=== PATIENT | female | born 1995 | race American Indian/Alaskan Native ===

== ENCOUNTER 2016-06-26 18:40 | Emergency (ER) | payer SELFPAY ==
[2016-06-26 19:05] VITALS: BP 120/82
== END 2016-06-26 19:44 | disposition left against medical advice (07) ==
LOC: DL.ED 18:40
DX: Z53.21 Procedure and treatment not carried out due to patient leaving prior to being seen by health care provider (principal)

== ENCOUNTER 2016-06-26 21:34 | Emergency (ER) | payer SELFPAY ==
[2016-06-26] MEDS ORDERED: Clindamycin HCl 150 MG Cap PO ONE (22:10)
[2016-06-26] MEDS ORDERED: Acetaminophen/HYDROcodone 325-10 MG Tab PO ONE (22:10)
[2016-06-26 22:13] VITALS: BP 103/69
--- NOTE | 2016-06-26 22:17 | EDM.PDOC ---
ED HPI Skin/Rash - General Chief Complaint: Skin Complaint Stated Complaint: BOIL Time Seen by Provider: 06/26/16 22:11 Source: Reports: Patient History Limitations: Reports: No limitations - History of Present Illness INITIAL COMMENTS - FREE TEXT/NARRATIVE: c/o 1 week h/o right buttocks boil, started draining this am, now it hurts a lot - Related Data Allergies Allergy/AdvReac Type Severity Reaction Status Date / Time No Known Allergies Allergy Verified 06/26/16 22:07 Home Meds: Ambulatory Orders Medication Instructions Recorded Confirmed . 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: Psychiatric History: Reports: Addiction (methamphetamine abuse) - Infectious Disease History Infectious Disease History: Reports: None - Past Surgical History Female Surgical History: Reports: section Social & Family History - Family History Family Medical History: Noncontributory Cardiac: Reports: CAD Endocrine/Metabolic: Reports: Diabetes, type II - Tobacco Use Smoking Status *Q: Current Every Day Smoker Years of Tobacco use: 3 Packs/Tins Daily: 0.3 Used Tobacco, but Quit: No Second Hand Smoke Exposure: Yes - Caffeine Use Caffeine Use: Reports: Energy drinks, Soda - Alcohol Use Days Per Week of Alcohol Use: 0 - Recreational Drug Use Recreational Drug Use: No Drug Use in Last 12 Months: Yes Recreational Drug Type: Reports: Methamphetamine Recreational Drug Use Frequency: Binges - Sexual History Sexual History: Reports: Sexually active - Living Situation & Occupation Living situation: Reports: with family Occupation: unemployed ED ROS GENERAL - Review of Systems Review Of Systems: ROS reveals no pertinent complaints other than HPI. ED EXAM, SKIN/RASH Exam: See Below Exam Limited By: No limitations General Appearance: alert, WD/WN, mild distress, other (crying) Ears: hearing grossly normal Throat/Mouth: Normal voice, No airway compromise Head: atraumatic Neck: non-tender, full range of motion Respiratory/Chest: no respiratory distress Cardiovascular: regular rate, rhythm GI/Abdominal: soft, non tender Neurological: alert, oriented, normal cognition, normal gait, no motor/sensory deficits Psychiatric: tearful Skin: Other (abscess) Location, Skin: other (buttocks) Associated features: warmth, tenderness, inflammation Lymphatic: no adenopathy Course - Orders/Labs/Meds Orders: Active Orders 24 hr Category Date Time Status Acetaminophen/HYDROcodone [Norris 325-10 MG] Med 06/26/16 22:10 Once 1 tab PO ONETIME ONE Clindamycin HCl [Cleocin] Med 06/26/16 22:10 Once 150 mg PO ONETIME ONE Departure - Departure Time of Disposition: 22:17 Disposition: Home, Self-Care 01 Condition: good Clinical Impression: Abscess Instructions: Abscess, [id number] Forms: ED Department Discharge Additional Instructions: 1) hot compress to area 2) follow up with clinic or recheck as needed rx given: clindamycin 150mg qid x 40 vicodin 5/325mg bid prn x 12 - My Orders Last 24 Hours: My Active Orders 06/26/16 22:10 Acetaminophen/HYDROcodone [Norris 325-10 MG] 1 tab PO ONETIME ONE Clindamycin HCl [Cleocin] 150 mg PO ONETIME ONE - Assessment/Plan Last 24 Hours: My Active Orders 06/26/16 22:10 Acetaminophen/HYDROcodone [Norris 325-10 MG] 1 tab PO ONETIME ONE Clindamycin HCl [Cleocin] 150 mg PO ONETIME ONE
== END 2016-06-26 22:22 | disposition home or self-care (01) ==
LOC: DL.ED 21:34
DX: L02.31 Cutaneous abscess of buttock (principal); F17.210 Nicotine dependence, cigarettes, uncomplicated; Z87.440 Personal history of urinary (tract) infections
CPT/HCPCS: 99282; A9270; 99283

== ENCOUNTER 2017-05-30 16:06 | Emergency (ER) | payer SELFPAY ==
[2017-05-30 17:07] VITALS: BP 145/65
--- NOTE | 2017-05-30 17:52 | CR ---
Clinical history: 22-year-old female with pain left foot, laterally (stepped on). Interpretation: Mild pes cavus but no sign of left foot fracture (acute or healing) or dislocation. No foreign bodies. (Tiny os peroneum lateraly) Interpretation: Negative exam.
--- NOTE | 2017-05-30 18:09 | EDM.PDOC ---
Scribed by Mimi Avalos 05/30/17 1809 for Michelle Navarro NP <Michelle Navarro - Last Filed: 05/30/17 18:09> ED HPI GENERAL MEDICAL PROBLEM - General Chief Complaint: Lower Extremity Injury/Pain Stated Complaint: [id number] LEFT FOOT PAIN Time Seen by Provider: 05/30/17 17:23 Source of Information: Reports: Patient, RN, RN Notes Reviewed History Limitations: Reports: No Limitations - History of Present Illness INITIAL COMMENTS - FREE TEXT/NARRATIVE: Patient presents to ER with complaint of left foot pain. She states someone stapped on it yesterday. It began hurting last night at 2100. It is worse today. Hard trouble standing on it at work. Her last menstrual period ended 3 days ago. Onset Date: 05/29/17 Duration: Getting Worse Location: Reports: Lower Extremity, Left Quality: Reports: Ache Severity: Mild Improves with: Reports: None Worsens with: Reports: None Associated Symptoms: Reports: No Other Symptoms Left Feet Pain Score (Numeric/FACES): 6 - Related Data Allergies Allergy/AdvReac Type Severity Reaction Status Date / Time No Known Allergies Allergy Verified 06/26/16 22:07 Home Meds: Home Meds . 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: Psychiatric History: Reports: Addiction - Infectious Disease History Infectious Disease History: Reports: None - Past Surgical History Female Surgical History: Reports: Section Social & Family History - Family History Family Medical History: Noncontributory Cardiac: Reports: CAD Endocrine/Metabolic: Reports: Diabetes, type II - Tobacco Use Smoking Status *Q: Current Every Day Smoker Years of Tobacco use: 3 Packs/Tins Daily: 0.3 Used Tobacco, but Quit: No Second Hand Smoke Exposure: Yes - Caffeine Use Caffeine Use: Reports: Energy Drinks, Soda - Alcohol Use Days Per Week of Alcohol Use: 0 - Recreational Drug Use Recreational Drug Use: No Drug Use in Last 12 Months: Yes Recreational Drug Type: Reports: Methamphetamine Recreational Drug Use Frequency: Binges - Sexual History Sexual History: Reports: Sexually Active - Living Situation & Occupation Living situation: Reports: with Family Occupation: Unemployed Review of Systems - Review of Systems Review Of Systems: ROS reveals no pertinent complaints other than HPI. ED EXAM, GENERAL - Physical Exam Exam: See Below Exam Limited By: No Limitations General Appearance: Alert, WD/WN, No Apparent Distress Eye Exam: Bilateral Eye: Normal Inspection Ears: Normal External Exam, Normal Canal, Hearing Grossly Normal, Normal TMs Nose: Normal Inspection, Normal Mucosa, No Blood Throat/Mouth: Normal Inspection, Normal Lips, Normal Teeth, Normal Gums, Normal Oropharynx, Normal Voice, No Airway Compromise Head: Atraumatic, Normocephalic Neck: Normal Inspection, Supple, Non-Tender, Full Range of Motion Respiratory/Chest: No Respiratory Distress, Lungs Clear, Normal Breath Sounds, No Accessory Muscle Use, Chest Non-Tender Cardiovascular: Normal Peripheral Pulses, Regular Rate, Rhythm, No Edema, No Gallop, No JVD, No Murmur, No Rub GI/Abdominal: Normal Bowel Sounds, Soft, Non-Tender, No Organomegaly, No Distention, No Abnormal Bruit, No Mass (Female) Exam: Deferred Rectal (Female) Exam: Deferred Back Exam: Normal Inspection, Full Range of Motion, NT Extremities: Other (left foot with ecchymosis and swelling. ) Neurological: Alert, Oriented, CN II-XII Intact, Normal Cognition, Normal Gait, Normal Reflexes, No Motor/Sensory Deficits Psychiatric: Normal Affect, Normal Mood Skin Exam: Warm, Dry, Intact, Normal Color, No Rash Lymphatic: No Adenopathy Course - Vital Signs Last Recorded V/S: Last Vital Signs Temp 37.0 C 05/30/17 17:05 Pulse 76 05/30/17 17:05 Resp 16 05/30/17 17:05 BP 145/65 H 05/30/17 17:05 Pulse Ox 100 05/30/17 17:05 - Orders/Labs/Meds Orders: Active Orders 24 hr Category Date Time Status DME for Discharge [COMM] Urgent Oth 05/30/17 18:27 Ordered - Radiology Interpretation Free Text/Narrative:: Left foot x-ray: Negative exam. See rad report. Departure - Departure Disposition: Home, Self-Care 01 Clinical Impression: Strain of left foot Qualifiers: Encounter type: initial encounter Qualified Code(s): S96.912A - Strain of unspecified muscle and tendon at ankle and foot level, left foot, initial encounter - Discharge Information Instructions: Foot Sprain Forms: ED Department Discharge Care Plan Goals: The patient was advised of the examination and x-ray results during the visit. The patient was placed in an EULALIA wrap for support. The patient was encouraged to rest, ice, elevate and compress the area of injury. If the patient has any additional symptoms or concerns, the patient should follow-up with her primary care facility or return to the emergency department. - My Orders Last 24 Hours: My Active Orders 05/30/17 18:27 DME for Discharge [COMM] Urgent - Assessment/Plan Last 24 Hours: My Active Orders 05/30/17 18:27 DME for Discharge [COMM] Urgent <Navarro Malloy - Last Filed: 05/30/17 18:29> Departure - Departure Time of Disposition: 18:27 Condition: Fair I have read and agree with the documentation that has been completed regarding this visit. By signing this record, I attest that the documentation was completed in my physical presence and is an accurate record of the encounter.
== END 2017-05-30 18:34 | disposition home or self-care (01) ==
LOC: DL.ED 16:06
DX: S96.912A Strain of unspecified muscle and tendon at ankle and foot level, left foot, initial encounter (principal); F17.210 Nicotine dependence, cigarettes, uncomplicated; W22.8XXA Striking against or struck by other objects, initial encounter
CPT/HCPCS: 73630-LT; 99282; 99283

== ENCOUNTER 2018-03-08 14:36 | Emergency (ER) | payer SELFPAY ==
[2018-03-08] MEDS ORDERED: Sodium Chloride 0.9% 10 ML Syringe FLUSH PRN (14:41)
--- NOTE | 2018-03-08 14:41 | EDM.PDOC ---
ED HPI GENERAL MEDICAL PROBLEM - General Chief Complaint: Abdominal Pain Stated Complaint: SHARP PAINS CAN'T BREATHE Time Seen by Provider: 03/08/18 14:40 Source of Information: Reports: Patient, Old Records, RN, RN Notes Reviewed History Limitations: Reports: No Limitations - History of Present Illness INITIAL COMMENTS - FREE TEXT/NARRATIVE: Pt presents from home by POV with c/o upper abdominal pain and burning that radiates through the midline of the chest into the throat. Pt states that she has been vomiting all day and cannot keep any food or liquids down. She reports Hx of PUD with similar Sx's in the past. Onset was a couple of hours after eating spicy noodles. Denies bloody or coffee ground emesis. Denies fever, chills, diarrhea, or constipation. Onset: Today Duration: Constant Location: Reports: Abdomen Quality: Reports: Burning Severity: Severe Improves with: Reports: None Worsens with: Reports: Eating Associated Symptoms: Reports: No Other Symptoms Epigastric Pain Score (Numeric/FACES): 8 - Related Data Allergies Allergy/AdvReac Type Severity Reaction Status Date / Time No Known Allergies Allergy Verified 06/26/16 22:07 Home Meds: Home Meds . 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: Psychiatric History: Reports: Addiction - Infectious Disease History Infectious Disease History: Reports: None - Past Surgical History Female Surgical History: Reports: Section Social & Family History - Family History Family Medical History: Noncontributory Cardiac: Reports: CAD Endocrine/Metabolic: Reports: Diabetes, type II - Tobacco Use Smoking Status *Q: Current Every Day Smoker Tobacco Use Within Last Twelve Months: Cigarettes - Caffeine Use Caffeine Use: Reports: Energy Drinks, Soda - Sexual History Sexual History: Reports: Sexually Active - Living Situation & Occupation Living situation: Reports: with Family Occupation: Unemployed ED ROS GENERAL - Review of Systems Review Of Systems: ROS reveals no pertinent complaints other than HPI. ED EXAM, GI/ABD - Physical Exam Exam: See Below Exam Limited By: No Limitations General Appearance: Alert, WD/WN, No Apparent Distress, Anxious, Thin Eyes: Bilateral: Normal Appearance, EOMI Nose: Normal Inspection, Normal Mucosa, No Blood Throat/Mouth: Normal Inspection, Normal Lips, Normal Teeth, Normal Gums, Normal Oropharynx, Normal Voice, No Airway Compromise Head: Atraumatic, Normocephalic Neck: Normal Inspection, Supple, Non-Tender, Full Range of Motion Respiratory/Chest: No Respiratory Distress, Lungs Clear, Normal Breath Sounds, No Accessory Muscle Use, Chest Non-Tender Cardiovascular: Normal Peripheral Pulses, Regular Rate, Rhythm, No Edema, No Gallop, No JVD, No Murmur, No Rub GI/Abdominal Exam: Normal Bowel Sounds, Soft, No Organomegaly, No Distention, No Abnormal Bruit, No Mass, Pelvis Stable, Tender (epigastric region). No: Guarding, Rigid, Rebound (Female) Exam: Deferred Rectal (Female) Exam: Deferred Back Exam: Normal Inspection Extremities: Normal Inspection Neurological: Alert, Oriented, Normal Cognition, No Motor/Sensory Deficits Psychiatric: Normal Affect, Normal Mood Skin Exam: Warm, Dry, Intact, Normal Color, No Rash Course - Vital Signs Last Recorded V/S: Last Vital Signs Temp 36.7 C 03/08/18 14:55 Pulse 88 03/08/18 14:55 Resp 16 03/08/18 14:55 BP 123/70 03/08/18 14:55 Pulse Ox 99 03/08/18 14:55 - Orders/Labs/Meds Orders: Active Orders 24 hr Category Date Time Status Peripheral IV Care [RC] . DIRECTED Care 03/08/18 14:41 Active Peripheral IV Insertion Adult [OM.PC] Stat Oth 03/08/18 14:41 Ordered Labs: Laboratory Tests 03/08/18 03/08/18 Range/Units 15:03 15:03 WBC 15.0 H (5.0-10.0) 10^3/uL RBC 4.30 (4.2-5.4) 10^6/uL Hgb 14.2 (12.0-16.0) g/dL Hct 40.2 (37.0-47.0) % MCV 93.5 (80-100) fL MCH 33.0 (27.0-34.0) pg MCHC 35.3 H (33.0-35.0) g/dL Plt Count 231 (150-450) 10^3/uL Neut % (Auto) 93.5 H (42.2-75.2) % Lymph % (Auto) 4.1 L (20.5-50.1) % Jay % (Auto) 2.3 (2-8) % Eos % (Auto) 0.0 L (1.0-3.0) % Baso % (Auto) 0.1 (0.0-1.0) % Sodium 137 (135-145) mmol/L Potassium 4.4 (3.6-5.0) mmol/L Chloride 102 (101-111) mmol/L Carbon Dioxide 19.0 L (21.0-31.0) mmol/L Anion Gap 20.4 BUN 13 (7-18) mg/dL Creatinine 0.7 (0.6-1.3) mg/dL Est Cr Clr Drug Dosing 85.03 mL/min Estimated GFR (MDRD) > 60 BUN/Creatinine Ratio 18.57 Glucose 106 H (74-105) mg/dL Calcium 9.7 (8.4-10.2) mg/dl Total Bilirubin 0.9 (0.2-1.0) mg/dL AST 29 (10-42) IU/L ALT 25 (10-60) IU/L Alkaline Phosphatase 44 (42-121) IU/L Total Protein 7.7 (6.7-8.2) g/dl Albumin 4.7 (3.2-5.5) g/dl Globulin 3.0 Albumin/Globulin Ratio 1.57 Amylase 42 (28-100) U/L Lipase 20 L (22-51) U/L HCG, Qual Negative Meds: Medications Discontinued Medications Generic Name Dose Route Start Last Admin Trade Name Freq PRN Reason Stop Dose Admin Al Hydroxide/Mg Hydroxide 30 ml 03/08/18 14:42 03/08/18 14:51 Gi Cocktail PO 03/08/18 14:43 30 ml ONETIME ONE Administration Hydromorphone HCl 1 mg 03/08/18 14:59 03/08/18 15:21 Dilaudid IVPUSH 03/08/18 15:00 1 mg ONETIME ONE Administration Sodium Chloride 1,000 mls @ 999 mls/hr 03/08/18 14:42 03/08/18 14:51 Normal Saline IV 03/08/18 15:42 999 mls/hr .BOLUS ONE Administration Ondansetron HCl 4 mg 03/08/18 14:42 03/08/18 14:51 Zofran IV 03/08/18 14:43 4 mg ONETIME ONE Administration Pantoprazole Sodium 40 mg 03/08/18 14:42 03/08/18 14:51 Protonix Iv IVPUSH 03/08/18 14:43 40 mg ONETIME ONE Administration Sodium Chloride 10 ml 03/08/18 14:41 03/08/18 14:52 Saline Flush FLUSH 10 ml ASDIRECTED PRN Administration Keep Vein Open Sucralfate 1 gm 03/08/18 14:42 03/08/18 15:00 Carafate PO 03/08/18 14:43 1 gm ONETIME ONE Administration - Re-Assessments/Exams Free Text/Narrative Re-Assessment/Exam: 03/08/18 Pt much improved following tx in ER and tolerating po food and liquids. Departure - Departure Time of Disposition: 16:57 Disposition: Home, Self-Care 01 Condition: Good Clinical Impression: Esophagitis, History of peptic ulcer disease - Discharge Information *PRESCRIPTION DRUG MONITORING PROGRAM REVIEWED*: Not Applicable *COPY OF PRESCRIPTION DRUG MONITORING REPORT IN PATIENT FAUSTINO: Not Applicable Instructions: Esophagitis, Peptic Ulcer, [id number], Peptic Ulcer Eating Plan Referrals: PCP,None [Ordering Only Provider] - Forms: ED Department Discharge Additional Instructions: Rx: Zofran 4mg Rx: Carafate 1g Rx: Omeprazole 20mg Viola diet, avoid spicy, greasy & fried foods, chocolate, mint, and alcohol. Follow up in clinic next week for recheck. - My Orders Last 24 Hours: My Active Orders 03/08/18 14:41 Peripheral IV Care [RC] . DIRECTED Peripheral IV Insertion Adult [OM.PC] Stat - Assessment/Plan Last 24 Hours: My Active Orders 03/08/18 14:41 Peripheral IV Care [RC] . DIRECTED Peripheral IV Insertion Adult [OM.PC] Stat
[2018-03-08] MEDS ORDERED: GI Cocktail Oral Solution 30 ML PO ONE (14:42)
[2018-03-08] MEDS ORDERED: Ondansetron 4 MG/2 ML SDV IV ONE (14:42)
[2018-03-08] MEDS ORDERED: Sodium Chloride 0.9% 1,000 ML IV ONE (14:42)
[2018-03-08] MEDS ORDERED: Sucralfate 1 GM Tab PO ONE (14:42)
[2018-03-08] MEDS ORDERED: Pantoprazole 40 MG Vial IVPUSH ONE (14:42)
[2018-03-08] MEDS ORDERED: HYDROmorphone 1 MG/ML Syringe IVPUSH ONE (14:59)
[2018-03-08 15:18] VITALS: BP 123/70
[2018-03-08 15:38] LABS: ANION GAP 20.4; CHLORIDE,CL 102 mmol/L (101-111); SODIUM,NA 137 mmol/L (135-145)
== END 2018-03-08 17:30 | disposition home or self-care (01) ==
LOC: DL.ED 14:36
DX: K20.9 Esophagitis, unspecified (principal); Z87.11 Personal history of peptic ulcer disease
CPT/HCPCS: 36415; 80053; 82150; 83690; 84703; 85025; 96365; 96366; 96375; 99283; A9270; C9113; J1170; J2405; J7030

== ENCOUNTER 2019-03-06 15:46 | Emergency (ER) | payer SELFPAY ==
[2019-03-06] MEDS ORDERED: Ondansetron 4 MG/2 ML SDV IVPUSH ONE (16:36)
[2019-03-06] MEDS ORDERED: Sodium Chloride 0.9% 1,000 ML IV ONE ×2 (16:36→17:27)
[2019-03-06 16:39] VITALS: BP 144/96; PULSE 77
[2019-03-06] MEDS ORDERED: Metoclopramide 10 MG/2 ML SDV IVPUSH ONE (16:51)
[2019-03-06 17:18] LABS: ANION GAP 14.9; CHLORIDE,CL 106 mmol/L (101-111); SODIUM,NA 140 mmol/L (135-145)
[2019-03-06] MEDS ORDERED: LORazepam 2 MG/ML Syringe IVPUSH ONE (17:27)
[2019-03-06] MEDS ORDERED: Iopamidol 612 MG/ML 100 ML Bottle IVPUSH ONE (18:23)
--- NOTE | 2019-03-06 19:09 | EDM.PDOC ---
Scribed by Mimi Avalos 03/06/19 1828 for Tarah Landaverde PA-C <Tarah Landaverde - Last Filed: 03/06/19 19:09> ED HPI GENERAL MEDICAL PROBLEM - General Chief Complaint: Gastrointestinal Problem Stated Complaint: THROWING UP Time Seen by Provider: 03/06/19 16:45 Source of Information: Reports: Patient, RN, RN Notes Reviewed History Limitations: Reports: No Limitations - History of Present Illness INITIAL COMMENTS - FREE TEXT/NARRATIVE: Patient presents to ER with family with vomiting and abdominal pain. She is having the dry heaves. She does not know when her last menstrual period ? 2 months ago. She was on Depo but unsure when last was due. It feels like ulcers. She had chips and a sandwich last night. She has chills. No urinary symptoms. Chest feels tight. Onset: Gradual Duration: Getting Worse Location: Reports: Abdomen Severity: Moderate Improves with: Reports: None Worsens with: Reports: None Associated Symptoms: Reports: No Other Symptoms Abdomen Pain Score (Numeric/FACES): 9 - Related Data Allergies Allergy/AdvReac Type Severity Reaction Status Date / Time No Known Allergies Allergy Verified 03/06/19 16:36 Home Meds: Home Meds Omeprazole 20 mg PO DAILY 03/11/18 [History] Sucralfate [Carafate] 1 gm PO DAILY 03/11/18 [History] Past Medical History - Past Health History Medical/Surgical History: Denies Medical/Surgical History HEENT History: Reports: None Cardiovascular History: Reports: None Respiratory History: Reports: Bronchitis, Recurrent Gastrointestinal History: Reports: Cholelithiasis, Gastritis, PUD Genitourinary History: Reports: Pyelonephritis, UTI, Recurrent 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: Musculoskeletal History: Reports: None Neurological History: Reports: None Psychiatric History: Reports: Addiction Endocrine/Metabolic History: Reports: None Hematologic History: Reports: None Immunologic History: Reports: None Oncologic (Cancer) History: Reports: None Dermatologic History: Reports: None - Infectious Disease History Infectious Disease History: Reports: None - Past Surgical History Head Surgeries/Procedures: Reports: None Female Surgical History: Reports: Section Social & Family History - Family History Family Medical History: Noncontributory Cardiac: Reports: CAD Endocrine/Metabolic: Reports: Diabetes, type II - Tobacco Use Smoking Status *Q: Current Every Day Smoker Years of Tobacco use: 8 Packs/Tins Daily: 1 - Caffeine Use Caffeine Use: Reports: None - Recreational Drug Use Recreational Drug Use: No - Sexual History Sexual History: Reports: Sexually Active - Living Situation & Occupation Living situation: Reports: with Family Occupation: Unemployed ED ROS GENERAL - Review of Systems Review Of Systems: Comprehensive ROS is negative, except as noted in HPI. ED EXAM, GI/ABD - Physical Exam Exam: See Below Exam Limited By: No Limitations General Appearance: Moderate Distress, Thin, Other (unkempt) Eyes: Bilateral: Normal Appearance Ears: Normal External Exam, Normal Canal, Hearing Grossly Normal, Normal TMs Nose: Normal Inspection, Normal Mucosa, No Blood Throat/Mouth: Other (membranes tacky) Head: Atraumatic, Normocephalic Neck: Normal Inspection, Supple, Non-Tender, Full Range of Motion Respiratory/Chest: No Respiratory Distress, Lungs Clear, Normal Breath Sounds, No Accessory Muscle Use, Chest Non-Tender Cardiovascular: Normal Peripheral Pulses, Regular Rate, Rhythm, No Edema, No Gallop, No JVD, No Murmur, No Rub GI/Abdominal Exam: Other (tender epigastriic and moderate lower is mild. Dry heaves) (Female) Exam: Deferred Rectal (Female) Exam: Deferred Back Exam: Normal Inspection, Full Range of Motion, NT Extremities: Normal Inspection Neurological: Alert, Oriented, CN II-XII Intact, Normal Cognition, Normal Gait, Normal Reflexes, No Motor/Sensory Deficits Psychiatric: Other (avoidant and surrly) Skin Exam: Other (pale) Course - Vital Signs Last Recorded V/S: Last Vital Signs Temp 36.2 C 03/06/19 16:37 Pulse 77 03/06/19 16:37 Resp 24 H 03/06/19 16:37 BP 144/96 H 03/06/19 16:37 Pulse Ox 100 03/06/19 16:37 - Orders/Labs/Meds Orders: Active Orders 24 hr Category Date Time Status Abdomen Pelvis w Cont [CT] Urgent Exams 03/06/19 18:22 Taken Labs: Laboratory Tests 03/06/19 03/06/19 03/06/19 Range/Units 16:50 16:50 16:50 WBC 15.4 H (5.0-10.0) 10^3/uL RBC 4.76 (4.2-5.4) 10^6/uL Hgb 15.5 D (12.0-16.0) g/dL Hct 45.2 (37.0-47.0) % MCV 95.0 (80-100) fL MCH 32.6 (27.0-34.0) pg MCHC 34.3 (33.0-35.0) g/dL Plt Count 277 (150-450) 10^3/uL Neut % (Auto) 88.4 H (42.2-75.2) % Lymph % (Auto) 8.9 L (20.5-50.1) % [place] % (Auto) 2.6 (2-8) % Eos % (Auto) 0.0 L (1.0-3.0) % Baso % (Auto) 0.1 (0.0-1.0) % Sodium 140 (135-145) mmol/L Potassium 3.9 (3.6-5.0) mmol/L Chloride 106 (101-111) mmol/L Carbon Dioxide 23.0 (21.0-31.0) mmol/L Anion Gap 14.9 BUN 9 (7-18) mg/dL Creatinine 0.7 (0.6-1.3) mg/dL Est Cr Clr Drug Dosing 82.35 mL/min Estimated GFR (MDRD) > 60 BUN/Creatinine Ratio 12.85 Glucose 111 H (74-105) mg/dL Calcium 9.4 (8.4-10.2) mg/dl Total Bilirubin 0.7 (0.2-1.0) mg/dL AST 23 (10-42) IU/L ALT 23 (10-60) IU/L Alkaline Phosphatase 50 (42-121) IU/L Total Protein 7.7 (6.7-8.2) g/dl Albumin 4.6 (3.2-5.5) g/dl Globulin 3.1 Albumin/Globulin Ratio 1.48 Amylase 61 (28-100) U/L Lipase 26 (22-51) U/L HCG, Qual Negative Urine Color (YELLOW) Urine Appearance (CLEAR) Urine pH (5.0-9.0) Ur Specific [place] (1.005-1.030) Urine Protein (NEGATIVE) Urine Glucose (UA) (NEGATIVE) Urine Ketones (NEGATIVE) Urine Occult Blood (NEGATIVE) Urine Nitrite (NEGATIVE) Urine Bilirubin (NEGATIVE) Urine Urobilinogen (0.2-1.0) mg/dL Ur Leukocyte Esterase (NEGATIVE) Urine Opiates Screen (NEGATIVE) Ur Oxycodone Screen (NEGATIVE) Urine Methadone Screen (NEGATIVE) Ur Barbiturates Screen (NEGATIVE) U Tricyclic Antidepress (NEGATIVE) Ur Phencyclidine Scrn (NEGATIVE) Ur Amphetamine Screen (NEGATIVE) U Methamphetamines Scrn (NEGATIVE) Urine MDMA Screen (NEGATIVE) U Benzodiazepines Scrn (NEGATIVE) Urine Cocaine Screen (NEGATIVE) U Marijuana (THC) Screen (NEGATIVE) 03/06/19 03/06/19 Range/Units 19:00 19:00 WBC (5.0-10.0) 10^3/uL RBC (4.2-5.4) 10^6/uL Hgb (12.0-16.0) g/dL Hct (37.0-47.0) % MCV (80-100) fL MCH (27.0-34.0) pg MCHC (33.0-35.0) g/dL Plt Count (150-450) 10^3/uL Neut % (Auto) (42.2-75.2) % Lymph % (Auto) (20.5-50.1) % [place] % (Auto) (2-8) % Eos % (Auto) (1.0-3.0) % Baso % (Auto) (0.0-1.0) % Sodium (135-145) mmol/L Potassium (3.6-5.0) mmol/L Chloride (101-111) mmol/L Carbon Dioxide (21.0-31.0) mmol/L Anion Gap BUN (7-18) mg/dL Creatinine (0.6-1.3) mg/dL Est Cr Clr Drug Dosing mL/min Estimated GFR (MDRD) BUN/Creatinine Ratio Glucose (74-105) mg/dL Calcium (8.4-10.2) mg/dl Total Bilirubin (0.2-1.0) mg/dL AST (10-42) IU/L ALT (10-60) IU/L Alkaline Phosphatase (42-121) IU/L Total Protein (6.7-8.2) g/dl Albumin (3.2-5.5) g/dl Globulin Albumin/Globulin Ratio Amylase (28-100) U/L Lipase (22-51) U/L HCG, Qual Urine Color Yellow (YELLOW) Urine Appearance Clear (CLEAR) Urine pH 5.5 (5.0-9.0) Ur Specific [place] >= 1.030 (1.005-1.030) Urine Protein Negative (NEGATIVE) Urine Glucose (UA) Negative (NEGATIVE) Urine Ketones Trace H (NEGATIVE) Urine Occult Blood Negative (NEGATIVE) Urine Nitrite Negative (NEGATIVE) Urine Bilirubin Negative (NEGATIVE) Urine Urobilinogen 0.2 (0.2-1.0) mg/dL Ur Leukocyte Esterase Negative (NEGATIVE) Urine Opiates Screen Negative (NEGATIVE) Ur Oxycodone Screen Negative (NEGATIVE) Urine Methadone Screen Negative (NEGATIVE) Ur Barbiturates Screen Negative (NEGATIVE) U Tricyclic Antidepress Negative (NEGATIVE) Ur Phencyclidine Scrn Negative (NEGATIVE) Ur Amphetamine Screen Negative (NEGATIVE) U Methamphetamines Scrn Negative (NEGATIVE) Urine MDMA Screen Negative (NEGATIVE) U Benzodiazepines Scrn Negative (NEGATIVE) Urine Cocaine Screen Negative (NEGATIVE) U Marijuana (THC) Screen Positive H (NEGATIVE) Meds: Medications Discontinued Medications Generic Name Dose Route Start Last Admin Trade Name Freq PRN Reason Stop Dose Admin Sodium Chloride 1,000 mls @ 999 mls/hr 03/06/19 16:36 03/06/19 16:58 Normal Saline IV 03/06/19 17:36 999 mls/hr .BOLUS ONE Administration Sodium Chloride 1,000 mls @ 999 mls/hr 03/06/19 17:27 03/06/19 17:43 Normal Saline IV 03/06/19 18:27 999 mls/hr .BOLUS ONE Administration Iopamidol 100 ml 03/06/19 18:23 03/06/19 19:06 Isovue-300 (61%) IVPUSH 03/06/19 18:24 56 ml ONETIME ONE Administration Lorazepam 1 mg 03/06/19 17:27 03/06/19 17:42 Ativan IVPUSH 03/06/19 17:28 1 mg ONETIME ONE Administration Metoclopramide HCl 10 mg 03/06/19 16:51 03/06/19 16:59 Reglan IVPUSH 03/06/19 16:52 10 mg ONETIME ONE Administration Omeprazole 20 mg 01/07/20 19:29 Omeprazole PO 03/06/19 19:30 ONETIME ONE Ondansetron HCl 4 mg 03/06/19 16:36 03/06/19 16:58 Zofran IVPUSH 03/06/19 16:37 4 mg ONETIME ONE Administration Departure - Departure Disposition: Home, Self-Care 01 Clinical Impression: Gastroenteritis, PUD (peptic ulcer disease) - Discharge Information Instructions: Peptic Ulcer, [id number], Viral Gastroenteritis, Adult, Easy-to -Read Forms: ED Department Discharge Care Plan Goals: The patient was advised of the examination, lab and CT results during the visit. The patient was discharged with a script for Omeprazole (20 mg) #30 to take 1 by mouth 2 times per day then 1 by mouth daily until gone and Zofran (4 mg) #20 to take 1 by mouth every 6 hours as needed for nausea. The patient was encouraged to stick to a BRAT diet (Bananas, Rice, Applesauce and [place]) with small frequent sips of fluid. If the patient has any additional symptoms or concerns, the patient should either return to the emergency department or visit her primary care facility. Sepsis Event Note - Evaluation Sepsis Screening Result: No Definite Risk - Focused Exam Vital Signs: Vital Signs Temp Pulse Resp BP Pulse Ox 03/06/19 16:37 36.2 C 77 24 H 144/96 H 100 Date Exam was Performed: 03/06/19 Time Exam was Performed: 19:09 <Navarro Malloy - Last Filed: 03/06/19 19:36> Departure - Departure Time of Disposition: 19:33 Condition: Fair - Discharge Information *PRESCRIPTION DRUG MONITORING PROGRAM REVIEWED*: Not Applicable *COPY OF PRESCRIPTION DRUG MONITORING REPORT IN PATIENT FAUSTINO: Not Applicable Sepsis Event Note - Focused Exam Date Exam was Performed: 03/06/19 Time Exam was Performed: 19:33 I have read and agree with the documentation that has been completed regarding this visit. By signing this record, I attest that the documentation was completed in my physical presence and is an accurate record of the encounter.
[2019-03-06] MEDS ORDERED: Omeprazole 20 MG Cap.CR PO ONE (19:29)
== END 2019-03-06 19:42 | disposition home or self-care (01) ==
LOC: DL.ED 15:46
DX: K52.9 Noninfective gastroenteritis and colitis, unspecified (principal); K27.9 Peptic ulcer, site unspecified, unspecified as acute or chronic, without hemorrhage or perforation; F17.210 Nicotine dependence, cigarettes, uncomplicated
CPT/HCPCS: 36415; 74177; 80053; 80305; 81003; 82150; 83690; 84703; 85025; 87804; 96361; 96374; 96375; 99284; A9270; J2060; J2405; J2765; J7030; Q9967

== ENCOUNTER 2019-03-08 20:42 | Emergency (ER) | payer SELFPAY ==
[2019-03-08] MEDS ORDERED: Ondansetron 4 MG Tab.DIS PO ONE (20:43)
[2019-03-08] MEDS ORDERED: Pantoprazole 40 MG Vial IVPUSH ONE (20:54)
[2019-03-08] MEDS ORDERED: Ondansetron 4 MG/2 ML SDV IVPUSH ONE (20:54)
--- NOTE | 2019-03-08 21:08 | EDM.PDOC ---
ED HPI GENERAL MEDICAL PROBLEM - General Chief Complaint: Gastrointestinal Problem Stated Complaint: ULCERS UPSET STOMACH THROWING UP Time Seen by Provider: 03/08/19 20:58 Source of Information: Reports: Patient History Limitations: Reports: No Limitations - History of Present Illness INITIAL COMMENTS - FREE TEXT/NARRATIVE: This 23 yo female patient reports to the ED with generalized abdominal pain. The patient reports she started vomiting at 0500 today and has not been able to stop. The patient reports she was not able to fill her script for Zofran due to vomiting. The patient was seen in the ED 2 days ago for similar symptoms. The patient reports she was feeling better and has been able to keep some fluids down. Onset: Today Onset Date: 03/08/19 Onset Time: 05:00 Duration: Constant Location: Reports: Abdomen Quality: Reports: Other Severity: Moderate Improves with: Reports: None Worsens with: Reports: None Context: Reports: Other Associated Symptoms: Reports: No Other Symptoms Chest Pain Score (Numeric/FACES): 5 - Related Data Allergies Allergy/AdvReac Type Severity Reaction Status Date / Time No Known Allergies Allergy Verified 03/08/19 21:07 Home Meds: Home Meds Omeprazole 20 mg PO DAILY 03/11/18 [History] Sucralfate [Carafate] 1 gm PO DAILY 03/11/18 [History] Past Medical History - Past Health History Medical/Surgical History: Denies Medical/Surgical History HEENT History: Reports: None Cardiovascular History: Reports: None Respiratory History: Reports: Bronchitis, Recurrent Gastrointestinal History: Reports: Cholelithiasis, Gastritis, PUD Genitourinary History: Reports: Pyelonephritis, UTI, Recurrent 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: Musculoskeletal History: Reports: None Neurological History: Reports: None Psychiatric History: Reports: Addiction Endocrine/Metabolic History: Reports: None Hematologic History: Reports: None Immunologic History: Reports: None Oncologic (Cancer) History: Reports: None Dermatologic History: Reports: None - Infectious Disease History Infectious Disease History: Reports: None - Past Surgical History Head Surgeries/Procedures: Reports: None Female Surgical History: Reports: Section Social & Family History - Family History Family Medical History: Noncontributory Cardiac: Reports: CAD Endocrine/Metabolic: Reports: Diabetes, type II - Tobacco Use Smoking Status *Q: Light Tobacco Smoker Years of Tobacco use: 5 Packs/Tins Daily: 0.1 - Caffeine Use Caffeine Use: Reports: None - Recreational Drug Use Recreational Drug Use: No - Sexual History Sexual History: Reports: Sexually Active - Living Situation & Occupation Living situation: Reports: with Family Occupation: Unemployed ED ROS GENERAL - Review of Systems Review Of Systems: Comprehensive ROS is negative, except as noted in HPI. ED EXAM, GI/ABD - Physical Exam Exam: See Below Exam Limited By: No Limitations General Appearance: Alert, WD/WN, Moderate Distress Eyes: Bilateral: Normal Appearance, EOMI Ears: Normal External Exam, Normal Canal, Hearing Grossly Normal, Normal TMs Nose: Normal Inspection, Normal Mucosa, No Blood Throat/Mouth: Normal Inspection, Normal Lips, Normal Teeth, Normal Gums, Normal Oropharynx, Normal Voice, No Airway Compromise Head: Atraumatic, Normocephalic Neck: Normal Inspection, Supple, Non-Tender, Full Range of Motion Respiratory/Chest: No Respiratory Distress, Lungs Clear, Normal Breath Sounds, No Accessory Muscle Use, Chest Non-Tender Cardiovascular: Normal Peripheral Pulses, Regular Rate, Rhythm, No Edema, No Gallop, No JVD, No Murmur, No Rub GI/Abdominal Exam: Normal Bowel Sounds, Soft, No Organomegaly, No Distention, No Abnormal Bruit, No Mass, Pelvis Stable, Tender (generalized) (Female) Exam: Deferred Rectal (Female) Exam: Deferred Back Exam: Normal Inspection, Full Range of Motion, NT Extremities: Normal Inspection, Normal Range of Motion, Non-Tender, Normal Capillary Refill, No Pedal Edema Neurological: Alert, Oriented, CN II-XII Intact, Normal Cognition, Normal Gait, Normal Reflexes, No Motor/Sensory Deficits Psychiatric: Normal Affect, Normal Mood Skin Exam: Warm, Dry, Intact, Normal Color, No Rash Lymphatic: No Adenopathy Course - Vital Signs Last Recorded V/S: Last Vital Signs Temp 37.2 C 03/08/19 20:55 Pulse 80 03/08/19 20:55 Resp 16 03/08/19 20:55 BP 124/96 H 03/08/19 20:55 Pulse Ox 100 03/08/19 20:55 - Orders/Labs/Meds Orders: Active Orders 24 hr Category Date Time Status Sodium Chloride 0.9% [Normal Saline] 1,000 ml Med 03/08/19 21:09 Ordered IV .BOLUS Medication Orders Sodium Chloride (Normal Saline) 1,000 mls @ 999 mls/hr IV .BOLUS ONE Stop: 03/08/19 22:09 Last Admin: 03/08/19 21:10 Dose: 999 mls/hr Labs: Laboratory Tests 03/08/19 03/08/19 Range/Units 21:00 21:00 WBC 15.7 H (5.0-10.0) 10^3/uL RBC 4.40 (4.2-5.4) 10^6/uL Hgb 14.4 (12.0-16.0) g/dL Hct 41.6 (37.0-47.0) % MCV 94.5 (80-100) fL MCH 32.7 (27.0-34.0) pg MCHC 34.6 (33.0-35.0) g/dL Plt Count 295 (150-450) 10^3/uL Neut % (Auto) 74.5 (42.2-75.2) % Lymph % (Auto) 16.7 L (20.5-50.1) % [place] % (Auto) 8.6 H (2-8) % Eos % (Auto) 0.0 L (1.0-3.0) % Baso % (Auto) 0.2 (0.0-1.0) % Sodium 139 (135-145) mmol/L Potassium 3.5 L (3.6-5.0) mmol/L Chloride 103 (101-111) mmol/L Carbon Dioxide 25.0 (21.0-31.0) mmol/L Anion Gap 14.5 BUN 8 (7-18) mg/dL Creatinine 0.7 (0.6-1.3) mg/dL Est Cr Clr Drug Dosing 86.79 mL/min Estimated GFR (MDRD) > 60 BUN/Creatinine Ratio 11.42 Glucose 91 (74-105) mg/dL Calcium 9.2 (8.4-10.2) mg/dl Total Bilirubin 0.7 (0.2-1.0) mg/dL AST 22 (10-42) IU/L ALT 23 (10-60) IU/L Alkaline Phosphatase 50 (42-121) IU/L Total Protein 7.1 (6.7-8.2) g/dl Albumin 4.3 (3.2-5.5) g/dl Globulin 2.8 Albumin/Globulin Ratio 1.54 Meds: Medications Generic Name Dose Route Start Last Admin Trade Name Bonnie PRN Reason Stop Dose Admin Sodium Chloride 1,000 mls @ 999 mls/hr 03/08/19 21:09 03/08/19 21:10 Normal Saline IV 03/08/19 22:09 999 mls/hr .BOLUS ONE Administration Discontinued Medications Generic Name Dose Route Start Last Admin Trade Name Bonnie PRN Reason Stop Dose Admin Ondansetron HCl 4 mg 03/08/19 20:54 03/08/19 21:08 Zofran IVPUSH 03/08/19 20:55 4 mg ONETIME ONE Administration Pantoprazole Sodium 40 mg 03/08/19 20:54 03/08/19 21:08 Protonix Iv IVPUSH 03/08/19 20:55 40 mg ONETIME ONE Administration Departure - Departure Time of Disposition: 22:06 Disposition: Home, Self-Care 01 Condition: Fair Clinical Impression: Peptic ulcer disease - Discharge Information *PRESCRIPTION DRUG MONITORING PROGRAM REVIEWED*: Not Applicable *COPY OF PRESCRIPTION DRUG MONITORING REPORT IN PATIENT FAUSTINO: Not Applicable Instructions: Peptic Ulcer, [id number] Forms: ED Department Discharge Care Plan Goals: The patient was advised of the examination and lab results during the visit. The patient was given IV fluid, IV Protonix and IV Zofran while in the ED. The patient reports she is currently feeling better. The patient was discharged with Zofran (4 mg) #2 to take 1 by mouth every 6 hours as needed for nausea. If the patient has any additional symptoms or concerns, the patient should either return to the emergency department or visit her primary care facility. Sepsis Event Note - Evaluation Sepsis Screening Result: No Definite Risk - Focused Exam Vital Signs: Vital Signs Temp Pulse Resp BP Pulse Ox 03/08/19 20:55 37.2 C 80 16 124/96 H 100 Date Exam was Performed: 03/08/19 Time Exam was Performed: 22:01 - My Orders Last 24 Hours: My Active Orders 03/08/19 21:09 Sodium Chloride 0.9% [Normal Saline] 1,000 ml IV .BOLUS - Assessment/Plan Last 24 Hours: My Active Orders 03/08/19 21:09 Sodium Chloride 0.9% [Normal Saline] 1,000 ml IV .BOLUS
[2019-03-08] MEDS ORDERED: Sodium Chloride 0.9% 1,000 ML IV ONE (21:09)
[2019-03-08 21:21] VITALS: BP 124/96; PULSE 80
[2019-03-08 21:26] LABS: ANION GAP 14.5; CHLORIDE,CL 103 mmol/L (101-111); SODIUM,NA 139 mmol/L (135-145)
[2019-03-08] MEDS ORDERED: Ondansetron 4 MG Tab.DIS ONE (22:06)
== END 2019-03-08 22:14 | disposition home or self-care (01) ==
LOC: DL.ED 20:42
DX: K27.9 Peptic ulcer, site unspecified, unspecified as acute or chronic, without hemorrhage or perforation (principal)
CPT/HCPCS: 36415; 80053; 85025; 96361; 96374; 96375; 99283; 99284; A9270; C9113; J2405; J7030

== ENCOUNTER 2021-06-25 03:08 | Emergency (ER) | payer MEDICAID ==
[2021-06-25] MEDS ORDERED: HYDROmorphone 1 MG/ML Syringe IV ONE ×2 (03:09)
[2021-06-25] MEDS ORDERED: Propofol 200 MG/20 ML SDV IV ONE (03:09)
[2021-06-25] MEDS ORDERED: fentaNYL 100 MCG/2 ML SDV IVPUSH ONE ×2 (03:14→03:35)
[2021-06-25] MEDS ORDERED: Ondansetron 4 MG/2 ML SDV IVPUSH ONE (03:14)
[2021-06-25] MEDS ORDERED: Sodium Chloride 0.9% 1,000 ML IV ONE (03:15)
[2021-06-25 03:31] VITALS: BP 162/109; PULSE 98
[2021-06-25] MEDS ORDERED: HYDROmorphone 1 MG/ML Syringe ONE (03:55)
[2021-06-25 04:24] LABS: ANION GAP 11.3 mEq/L (7-13); CHLORIDE,CL 105 mmol/L (98-107); SODIUM,NA 138 mmol/L (136-145)
[2021-06-25] MEDS ORDERED: Acetaminophen/HYDROcodone 325-10 MG Tab PO ONE (06:21)
== END 2021-06-25 06:17 | disposition home or self-care (01) ==
LOC: DL.ED 03:08
DX: S52.501A Unspecified fracture of the lower end of right radius, initial encounter for closed fracture (principal); S52.511A Displaced fracture of right radial styloid process, initial encounter for closed fracture; F17.210 Nicotine dependence, cigarettes, uncomplicated; Z79.899 Other long term (current) drug therapy; W18.39XA Other fall on same level, initial encounter
CPT/HCPCS: 01820; 25530; 36415; 73100-RT; 80053; 84703; 85025; 96374; 99283-25; A9270-GY; J1170; J2405; J3010; J7030

== ENCOUNTER 2021-06-26 15:22 | Emergency (ER) | payer MEDICAID ==
[2021-06-26 15:41] VITALS: BP 131/87; PULSE 98
[2021-06-26] MEDS ORDERED: HYDROmorphone 1 MG/ML Syringe IM ONE (16:04)
== END 2021-06-26 16:38 | disposition left against medical advice (07) ==
LOC: DL.ED 15:22
DX: M25.531 Pain in right wrist (principal); Z79.899 Other long term (current) drug therapy; Z72.0 Tobacco use; Z53.8 Procedure and treatment not carried out for other reasons
CPT/HCPCS: 73100-RT; 96372; 99283; J1170

== ENCOUNTER 2022-09-21 09:46 | Emergency (ER) | payer MEDICAID ==
[2022-09-21 10:03] VITALS: BP 134/96; PULSE 97
[2022-09-21] MEDS ORDERED: traMADol 50 MG Tab PO ONE (10:10)
[2022-09-21] MEDS ORDERED: Lidocaine 2% Viscous Solution 15 ML UD PO ONE (10:10)
== END 2022-09-21 10:25 | disposition home or self-care (01) ==
LOC: DL.ED 09:46
DX: K02.9 Dental caries, unspecified (principal); F17.210 Nicotine dependence, cigarettes, uncomplicated; Z79.899 Other long term (current) drug therapy
CPT/HCPCS: 99282

== ENCOUNTER 2022-10-17 17:50 | Inpatient (IN) | payer MEDICAID ==
[2022-10-17] MEDS ORDERED: Piperacillin/Tazobactam 3.375 GM in Sodium Chloride 0.9% 100 ML IV ONE (17:58)
[2022-10-17] MEDS ORDERED: Iopamidol 612 MG/ML 100 ML Bottle IVPUSH ONE (18:08)
[2022-10-17] MEDS: Sodium Chloride 0.9% 10 ML Syringe FLUSH PRN (18:14)
[2022-10-17 18:15] LABS: HEMATOCRIT 42.8 % (37.0-47.0); HEMOGLOBIN 14.1 g/dL (12.0-16.0); MEAN CORPUSCULAR HGB CONC 32.9 g/dL (33.0-35.0); MEAN CORPUSCULAR VOLUME 91.1 fL (80-100); PLATELET COUNT,PLT 403 10^3/uL (150-450); WHITE BLOOD CELL COUNT,WBC 43.1 10^3/uL (5.0-10.0)
[2022-10-17 18:17] LABS: BASOPHILS PERCENT AUTO 0.1 % (0.0-1.0); EOSINOPHILS PERCENT AUTO 0.1 % (1.0-3.0); LYMPHOCYTES PERCENT AUTO 5.1 % (20.5-50.1); MONOCYTES PERCENT AUTO 3.6 % (2-8); NEUTROPHILS PERCENT AUTO 91.1 % (42.2-75.2)
[2022-10-17 18:25] LABS: LYMPHOCYTES PERCENT MAN 6 % (20-50); MONOCYTES PERCENT MAN 1 % (2-8); SEG NEUTROPHILS PERCENT MAN 93 % (42-75)
[2022-10-17 18:28] LABS: ANION GAP 13.9 mEq/L (7-13); CALCIUM 9.4 mg/dL (8.5-10.1); CREATININE 0.86 mg/dL (0.55-1.02); EST CRCL DRUG DOSING (CG) 61.09 mL/min; POTASSIUM,K 3.9 mmol/L (3.5-5.1)
[2022-10-17] MEDS ORDERED: Morphine 4 MG/ML Syringe IVPUSH ONE (18:40)
[2022-10-17 19:09] LABS: LACTIC ACID 1.4 mmol/L (0.4-2.0)
[2022-10-17] MEDS ORDERED: Morphine 2 MG/ML SYRINGE IVPUSH ONE (22:10)
[2022-10-17 23:18] LABS: C-REACTIVE PROTEIN 32.2 mg/dL (0.0-0.9); ETHANOL BLOOD MEDICAL < 3 mg/dL (0)
[2022-10-17] MEDS ORDERED: Polyethylene Glycol 3350 Powder 17 GM Packet PO PRN (23:21)
[2022-10-17] MEDS ORDERED: Ondansetron 4 MG/2 ML SDV IVPUSH PRN (23:21)
[2022-10-17] MEDS ORDERED: Acetaminophen 325 MG Tab PO PRN (23:21)
[2022-10-17] MEDS ORDERED: Magnesium Hydroxide 400 MG/5 ML Susp 30 ML Cup PO PRN (23:21)
[2022-10-17] MEDS ORDERED: Sennosides/Docusate Sodium 50-8.6 MG Tab PO PRN (23:21)
[2022-10-17] MEDS ORDERED: Albuterol/Ipratropium 3.0-0.5 MG/3 ML Neb Soln NEB PRN (23:21)
[2022-10-17] MEDS ORDERED: Naloxone 2 MG/2 ML Syringe IVPUSH PRN (23:21)
[2022-10-17] MEDS ORDERED: Pantoprazole 40 MG Vial IVPUSH ONE (23:24)
[2022-10-17] MEDS ORDERED: Ketorolac 30 MG/ML SDV IVPUSH ONE (23:24)
[2022-10-17] MEDS ORDERED: Flumazenil 0.1 MG/ML 5 ML MDV IVPUSH PRN (23:25)
[2022-10-17] MEDS ORDERED: LORazepam 2 MG/ML SDV IVPUSH PRN (23:25)
[2022-10-17] MEDS ORDERED: hydrALAZINE 20 MG/ML SDV IVPUSH PRN (23:26)
[2022-10-17] MEDS ORDERED: Metoprolol Tartrate 5 MG/5 ML SDV IVPUSH PRN (23:26)
[2022-10-17] MEDS ORDERED: diphenhydrAMINE 50 MG/ML SDV IVPUSH ONE (23:31)
[2022-10-17] MEDS ORDERED: Dexamethasone 4 MG/ML SDV IVPUSH ONE (23:31)
[2022-10-17] MEDS ORDERED: cefTRIAXone 2 GM Vial IVPUSH ONE (23:32)
[2022-10-17] MEDS ORDERED: Sodium Chloride 0.9% 1,500 ML IV SCH (23:45)
[2022-10-18] MEDS: Acetaminophen/oxyCODONE 325-5 MG Tab PO PRN ×3 (00:05→15:42)
[2022-10-18] MEDS: Zolpidem 5 MG Tab PO PRN ×2 (00:06→20:26)
[2022-10-18] MEDS: Sodium Chloride 0.9% 10 ML Syringe FLUSH PRN (00:18)
[2022-10-18] MEDS: cefTRIAXone 2 GM Vial IVPUSH SCH ×2 (00:35→22:46)
[2022-10-18] MEDS: Clindamycin in 0.9 % Sod Chlor 900 MG in Premix Bag 1 BAG IV SCH ×6 (00:59→12:38)
[2022-10-18] MEDS: Pantoprazole 40 MG Tab.CR PO SCH ×2 (05:31→15:42)
[2022-10-18 06:58] LABS: HEMATOCRIT 36.7 % (37.0-47.0); MEAN CORPUSCULAR HEMOGLOBIN 30.2 pg (27.0-34.0); MEAN CORPUSCULAR HGB CONC 32.7 g/dL (33.0-35.0); MEAN CORPUSCULAR VOLUME 92.4 fL (80-100); PLATELET COUNT,PLT 340 10^3/uL (150-450); RED BLOOD CELL COUNT 3.97 10^6/uL (4.2-5.4)
[2022-10-18 07:00] LABS: LYMPHOCYTES PERCENT AUTO 2.5 % (20.5-50.1); NEUTROPHILS PERCENT AUTO 95.7 % (42.2-75.2)
[2022-10-18 07:01] LABS: BASOPHILS PERCENT AUTO 0.1 % (0.0-1.0); MONOCYTES PERCENT AUTO 1.7 % (2-8)
[2022-10-18 07:21] LABS: ALBUMIN 2.3 g/dL (3.4-5.0); ANION GAP 12.1 mEq/L (7-13); BILIRUBIN TOTAL 0.2 mg/dL (0.2-1.0); BUN/CREATININE RATIO 13.5 (No establ ref range); CALCIUM 8.8 mg/dL (8.5-10.1); CREATININE 0.74 mg/dL (0.55-1.02); EST CRCL DRUG DOSING (CG) 71.4 mL/min; MAGNESIUM 2.1 mg/dL (1.8-2.4); POTASSIUM,K 4.1 mmol/L (3.5-5.1); PROTEIN TOTAL,TP 7.1 g/dL (6.4-8.2)
[2022-10-18 07:26] LABS: HEMOGLOBIN A1C 6.1 % (<5.7)
[2022-10-18 07:39] LABS: A/G RATIO 0.48
[2022-10-18 07:47] LABS: LYMPHOCYTES PERCENT MAN 3 % (20-50); SEG NEUTROPHILS PERCENT MAN 97 % (42-75)
[2022-10-18 07:49] LABS: WHITE BLOOD CELL COUNT,WBC 37.8 10^3/uL (5.0-10.0)
[2022-10-18] MEDS: Naproxen 250 MG Tab PO SCH ×2 (12:10→20:25)
[2022-10-18] MEDS: oxyCODONE ER 10 MG TAB.ER PO SCH ×2 (12:10→20:25)
[2022-10-18] MEDS: Saccharomyces Boulardii (Probiotic) 250 MG Cap PO SCH ×2 (12:11→20:24)
[2022-10-18] MEDS: Nicotine 21 MG/24 Hr Patch TRDERM SCH (12:11)
[2022-10-18] MEDS: Non-Formulary Medication 1 Each PO SCH (12:38)
[2022-10-18] MEDS: Clindamycin in 0.9 % Sod Chlor 300 MG in Premix Bag 1 BAG IV SCH ×6 (12:42→23:04)
[2022-10-18] MEDS: HYDROmorphone 0.5 MG/0.5 ML Syringe IVPUSH PRN (16:59)
[2022-10-19] MEDS: HYDROmorphone 0.5 MG/0.5 ML Syringe IVPUSH PRN ×2 (01:42→09:25)
[2022-10-19] MEDS: Clindamycin in 0.9 % Sod Chlor 300 MG in Premix Bag 1 BAG IV SCH ×2 (05:13)
[2022-10-19] MEDS: Pantoprazole 40 MG Tab.CR PO SCH (05:13)
[2022-10-19 06:19] LABS: MEAN CORPUSCULAR HEMOGLOBIN 29.7 pg (27.0-34.0); MEAN CORPUSCULAR HGB CONC 32.3 g/dL (33.0-35.0); PLATELET COUNT,PLT 362 10^3/uL (150-450); RED BLOOD CELL COUNT 3.37 10^6/uL (4.2-5.4); WHITE BLOOD CELL COUNT,WBC 24.4 10^3/uL (5.0-10.0)
[2022-10-19 06:21] LABS: BASOPHILS PERCENT AUTO 0.1 % (0.0-1.0); EOSINOPHILS PERCENT AUTO 0.6 % (1.0-3.0); LYMPHOCYTES PERCENT AUTO 13.5 % (20.5-50.1); MONOCYTES PERCENT AUTO 4.4 % (2-8); NEUTROPHILS PERCENT AUTO 81.4 % (42.2-75.2)
[2022-10-19 06:42] LABS: ALBUMIN 2.2 g/dL (3.4-5.0); ANION GAP 11.3 mEq/L (7-13); BILIRUBIN TOTAL 0.2 mg/dL (0.2-1.0); BUN/CREATININE RATIO 16.9 (No establ ref range); C-REACTIVE PROTEIN 8.9 mg/dL (0.0-0.9); CALCIUM 8.1 mg/dL (8.5-10.1); CREATININE 0.65 mg/dL (0.55-1.02); EST CRCL DRUG DOSING (CG) 81.29 mL/min; MAGNESIUM 1.6 mg/dL (1.8-2.4); POTASSIUM,K 3.3 mmol/L (3.5-5.1)
[2022-10-19 06:43] LABS: A/G RATIO 0.58
[2022-10-19 06:48] LABS: BAND PERCENT MAN 6 %; EOSINOPHILS PERCENT MAN 1 % (1-3); LYMPHOCYTES PERCENT MAN 15 % (20-50); MONOCYTES PERCENT MAN 1 % (2-8); SEG NEUTROPHILS PERCENT MAN 77 % (42-75)
[2022-10-19 07:07] LABS: SEDIMENTATION RATE MANUAL 44 mm/hr (0-20)
[2022-10-19] MEDS ORDERED: Magnesium Sulfate/Water 2 GM in Premix Bag 1 BAG IV ONE (08:30)
[2022-10-19] MEDS: Nicotine 21 MG/24 Hr Patch TRDERM SCH (09:04)
[2022-10-19] MEDS: Saccharomyces Boulardii (Probiotic) 250 MG Cap PO SCH (09:04)
[2022-10-19] MEDS: oxyCODONE ER 10 MG TAB.ER PO SCH (09:05)
[2022-10-19] MEDS: Naproxen 250 MG Tab PO SCH (09:08)
[2022-10-19] MEDS ORDERED: traMADol 50 MG Tab PO PRN ×2 (10:33→10:45)
[2022-10-19] MEDS ORDERED: Acetaminophen 325 MG Tab PO PRN (10:34)
[2022-10-19] MEDS ORDERED: HYDROmorphone 0.5 MG/0.5 ML Syringe IVPUSH PRN (10:45)
[2022-10-19] MEDS ORDERED: Acetaminophen/oxyCODONE 325-5 MG Tab PO PRN (10:45)
[2022-10-19 11:40] VITALS: BP 114/62; PULSE 77
[2022-10-19] MEDS ORDERED: Potassium Chloride 10 MEQ Tab.ER PO SCH (12:00)
== END 2022-10-19 13:35 | disposition left against medical advice (07) | DRG 603 ==
LOC: DL.ED 17:50 → DL.MS 22:12 → DL.ED 22:46
PROVIDERS: ADMIT Hospitalist; ATTEND Internal Medicine
PROC: 0H90XZZ Drainage of Scalp Skin, External Approach (ICD-10-PCS; principal; 2022-10-17)
DX: L02.811 Cutaneous abscess of head [any part, except face] (principal); K08.9 Disorder of teeth and supporting structures, unspecified; J32.8 Other chronic sinusitis; F32.A Depression, unspecified; F12.90 Cannabis use, unspecified, uncomplicated; R73.9 Hyperglycemia, unspecified; K04.7 Periapical abscess without sinus; E83.42 Hypomagnesemia; R59.9 Enlarged lymph nodes, unspecified; F17.210 Nicotine dependence, cigarettes, uncomplicated; Z56.0 Unemployment, unspecified; E87.8 Other disorders of electrolyte and fluid balance, not elsewhere classified; E83.52 Hypercalcemia; Z79.899 Other long term (current) drug therapy; Z98.890 Other specified postprocedural states
CPT/HCPCS: 10060; 36415; 70450; 70487; 70491; 80048; 80053; 80307; 83036; 83605; 83735; 84703; 85025; 85651; 86140; 87040; 87070; 87077; 87186; 96365; 96375; 99284; 99284-25; A9270-GY; C9113; J0696; J1100; J1170; J1200; J1885; J2060; J2270; J2543; J3475; J3490; J7030; Q9967

== ENCOUNTER 2023-04-02 17:11 | Emergency (ER) | payer MEDICAID ==
[2023-04-02 17:28] VITALS: BP 128/95; PULSE 105
[2023-04-02] MEDS: Lidocaine/Prilocaine 2.5-2.5% Crm 5 GM Tube TOP ONE (17:59)
[2023-04-02] MEDS: Sodium Chloride 0.9% 10 ML Syringe FLUSH PRN (17:59)
[2023-04-02] MEDS: Bacitracin Oint 1 GM U/D Packet TOP ONE (18:05)
[2023-04-02] MEDS: Lidocaine 1% 5 ML VIAL INFILT ONE (18:05)
[2023-04-02] MEDS: Ketorolac 30 MG/ML SDV IVPUSH ONE (18:05)
[2023-04-02] MEDS: diphenhydrAMINE 50 MG/ML SDV IVPUSH ONE (18:06)
[2023-04-02] MEDS: Take Home: traMADol 50 MG, 4 Tab Pack PO ONE (18:39)
[2023-04-02] MEDS: Take Home: Clindamycin HCl 150 MG, 12 Cap Pack PO ONE (18:39)
[2023-04-02] MEDS: Take Home: Doxycycline 100 MG Cap, 4 Cap Pack PO ONE (18:39)
== END 2023-04-02 19:15 | disposition home or self-care (01) ==
LOC: DL.ED 17:11
DX: H60.02 Abscess of left external ear (principal); Z79.899 Other long term (current) drug therapy
CPT/HCPCS: 10060; 69000; 87070; 96365; 96375; 99283; 99283-25; A9270-GY; J1200; J1885; J3370; J3490; J7050

== ENCOUNTER 2023-05-18 23:58 | Emergency (ER) | payer MEDICAID ==
[2023-05-19 00:06] VITALS: BP 117/69; PULSE 91
[2023-05-19] MEDS: Ibuprofen 400 MG Tab PO ONE (00:12)
== END 2023-05-19 00:56 | disposition home or self-care (01) ==
LOC: DL.ED 23:58
DX: S62.654A Nondisplaced fracture of middle phalanx of right ring finger, initial encounter for closed fracture (principal); Z79.899 Other long term (current) drug therapy; W23.0XXA Caught, crushed, jammed, or pinched between moving objects, initial encounter
CPT/HCPCS: 73140; 99282; 99283; A9270